=== PATIENT | male | born 1965 | race Caucasian/White ===

== ENCOUNTER 2016-09-21 10:45 | Emergency (ER) | payer SELFPAY ==
[2016-09-21 11:45] LABS: URINE BILIRUBIN NEGATIVE (NEGATIVE); URINE BLOOD NEGATIVE (NEGATIVE); URINE GLUCOSE (UA) NEGATIVE (NEGATIVE); URINE LEUKOCYTE ESTERASE NEGATIVE (NEGATIVE); URINE NITRITE NEGATIVE (NEGATIVE); URINE PROTEIN NEGATIVE (NEGATIVE); URINE UROBILINOGEN NORMAL (0-1 mg/dl)
[2016-09-21 11:49] LABS: URINE APPEARANCE CLEAR; URINE COLOR YELLOW
[2016-09-21] MEDS ORDERED: SODIUM CHLORIDE 0.9% 1,000 ML ONE (11:51)
[2016-09-21] MEDS ORDERED: LORAZEPAM 2 MG/ML 1ML SDV ONE (11:52)
[2016-09-21 12:19] LABS: ABSOLUTE NEUTROPHIL COUNT 8.3 K/mm3 (1.8-7.7); BASO % 0.3 % (0.2-1.0); EOS % 0.2 % (0.9-2.9); HEMATOCRIT 47.6 % (32.0-52.0); HEMOGLOBIN 15.9 gm/l (14.0-18.0); IMM NEUT # 0.1 K/mm3 (0-0.2); IMM NEUT% 0.5 % (0-1); LYMPH # 0.9 (1.0-4.8); LYMPH % 8.9 % (15-45); MEAN CELL VOLUME 97.1 fl (80.0-94.0); MEAN CORPUSCULAR HEMOGLOBIN 32.4 pg (27.0-31.0); MEAN CORPUSCULAR HGB CONC 33.4 g/dl (33.0-37.0); MEAN PLATELET VOLUME 9.6 fl (7.4-10.4); MONO # 0.6 (0.0-0.8); MONO % 6.4 % (4-12); NEUT % 83.7 % (43-75); PLATELET COUNT 184 K/mm3 (130-400); RED CELL DISTRIBUTION WIDTH 12.2 % (11.5-14.5)
[2016-09-21 12:20] LABS: ALB/GLOB RATIO 1.7 (>1.0); ALBUMIN 4.5 gm/dL (3.5-5.7); CALCIUM 9.4 mg/dL (8.6-10.3)
--- NOTE | 2016-09-21 13:37 | RAD ---
09/21/2016 1:31 PM CHEST - 2 VIEWS History: Tachycardia and dizziness. Comparison: None Findings: Two views of the chest are obtained. The lungs are clear with out effusion or pneumothorax. The cardiomediastinal silhouette is unremarkable.. The osseous structures are intact.. IMPRESSION: No acute intrathoracic process.
[2016-09-21 13:41] LABS: AMPHETAMINES/METHAMPHETAMINES NEGATIVE (NEGATIVE); COCAINE NEGATIVE (NEGATIVE); MARIJUANA NEGATIVE (NEGATIVE); METHADONE NEGATIVE (NEGATIVE); OPIATES NEGATIVE (NEGATIVE); TRICYCLIC ANTIDEPRESSANTS NEGATIVE (NEGATIVE)
== END 2016-09-21 13:47 | disposition home or self-care (01) ==
LOC: ED 10:45
DX: R55 Syncope and collapse (principal); R00.0 Tachycardia, unspecified; F17.210 Nicotine dependence, cigarettes, uncomplicated
CPT/HCPCS: 85379; 85025; 82550; 80305; 80053; 80307; 81003; 84484; 71020; 99284 ×2; 96374; 96361; 82962; 93005; J2060; J7030